=== PATIENT | female | born 1945 | race Caucasian/White ===

== ENCOUNTER 2020-03-19 16:17 | Observation (INO) ==
[2020-03-19] MEDS ORDERED: Nitroglycerin 0.4 MG TAB.SUBL SL PRN (19:50)
[2020-03-20 06:34] LABS: Basophils # 0.1 K/mcL (0.0-0.2); Basophils % 1.9 %; Eosinophils # 0.1 K/mcL (0.0-0.6); Eosinophils % 3.4 %; Hematocrit 42.2 % (35.3-44.9); Hemoglobin 13.2 g/dL (11.5-15.4); Lymphocytes # 1.4 K/mcL (0.6-4.6); Lymphocytes % 44.4 %; Mean Corpuscular HGB Conc 31.3 g/dL (31.6-35.5); Mean Corpuscular Hemoglobin 30.6 pg (28.0-33.3); Mean Corpuscular Volume 97.9 fL (83.0-100.0); Mean Platelet Volume 9.6 fL (9.4-12.4); Monocytes # 0.4 K/mcL (0.0-1.3); Monocytes % 10.9 %; Neutrophils # 1.3 K/mcL (1.6-8.9); Platelet Count 163 K/mcL (140-400); Red Blood Count 4.31 M/mcL (3.82-4.97); Red Cell Distribution Width 13.3 % (11.5-14.5); Segmented Neutrophils % 39.4 %; White Blood Count 3.2 K/mcL (4.3-11.1)
[2020-03-20] MEDS ORDERED: Regadenoson 0.4 MG/5 ML SYRINGE IVP ONE (06:38)
[2020-03-20 06:44] LABS: INR 1.3; Prothrombin Time 14.4 Seconds (9.4-12.1)
[2020-03-20 06:46] LABS: Activated Partial Thrombo Time 34.8 Seconds (26.0-36.0)
[2020-03-20 07:03] LABS: Alanine Aminotransferase 17 Units/L (7-52); Albumin 3.7 g/dL (3.5-5.7); Albumin/Globulin Ratio 1.7 (1.1-2.2); Alkaline Phosphatase 88 Units/L (34-104); Aspartate Amino Transferase 28 Units/L (13-39); BUN/Creatinine Ratio 13 (6-26); Bilirubin,Total 0.4 mg/dL (0.3-1.0); Blood Urea Nitrogen 13 mg/dL (8-23); Calcium 8.6 mg/dL (8.6-10.3); Carbon Dioxide 22 mEq/L (23-29); Chloride 108 mEq/L (98-107); Chol/HDL Ratio 2.5 (0-4.9); Cholesterol 135 mg/dL (< 200); Globulin 2.2 g/dL (2.4-3.5); Glucose 80 mg/dL (70-105); HDL Cholesterol 55 mg/dL (40-59); LDL Cholesterol,Calculated 68 mg/dL (0-99); Osmolality,Calculated 285 (280-300); Potassium 4.6 mEq/L (3.5-5.1); Sodium 138 mEq/L (136-145); Total Protein 5.9 g/dL (6.4-8.9); Triglycerides 60 mg/dL (< 150); eGFR For African Americans > 60 (> 60); eGFR For Non-African Americans 56 (> 60)
[2020-03-20 07:11] LABS: Thyroid Stimulating Hormone 3.156 mcIU/mL (0.340-5.600)
[2020-03-20] MEDS ORDERED: NON-FORMULARY MEDICATION 1 EACH EACH (Nitroglycerin [Nitrostat] 0.4 MG) SL PRN (08:12)
[2020-03-20] MEDS ORDERED: Multivit/Ca/Min/Fe/FA 1 TAB TABLET PO SCH (09:00)
[2020-03-20] MEDS ORDERED: DilTIAZem CD (24hr) 240 MG CAP.ER.24H PO SCH (09:00)
[2020-03-20 11:15] VITALS: BP 125/71
[2020-03-20] MEDS ORDERED: *HR* Rivaroxaban 15 MG TABLET PO SCH (17:00)
[2020-03-21] MEDS ORDERED: Levothyroxine 25 MCG TABLET PO SCH (06:30)
== END 2020-03-20 12:57 | disposition home or self-care (01) ==
LOC: 3BNU
PROVIDERS: ADMIT Pharmacist; ATTEND Pharmacist